=== PATIENT | male | born 1965 | race Caucasian/White ===

== ENCOUNTER 2016-09-01 20:05 | Emergency (ER) | payer MEDICARE ==
[~2016-09-01] VITALS: Ht 180.3 cm; Wt 104.5 kg
[~2016-09-01 20:05] MED LIST: ABILIFY15 MG PO; AMBIEN10 MG OR; BUSPIRONE10 MG PO; CLONAZEPAM0.5 MG PO; COLACE100 MG OR; COLACE50 MG PO; CORTISPORIN OTI10 ML AD; CYMBALTA30 MG PO; DILAUDID2 MG OR; FENTANYL25 MCG/HR TD; FLEXERIL OR; FLEXERIL PO; GABAPENTIN300 MG PO; HYDROCHLOROT12.5 MG PO; LIDODERM5 % EX; LISINOPRIL10 MG OR; LORTAB 10-325 M1 TAB PO; LOSARTAN/HCT1 TA1 PO; LYRICA50 MG PO; LYRICA75 MG OR; LYRICA75 MG PO; MELOXICAM15 MG PO; MIRALAX3350 N1 OR; MIRALAX3350 N1 PO; NORCO1 TA1 PO; NUCYNTA50 MG PO; OXAPROZIN600 MG OR; PERCOCET1 TA4 PO; PERCOCET1 TA5 OR; QUETIAPINE FUM300 MG PO; SOMA350 MG PO; TIZANIDINE2 MG PO; ULTRAM50 M1 PO; [UNRECOGNIZED DRUG - OTHER] OR
[2016-09-01] MEDS ORDERED: BACLOFEN10 MG PO (20:36)
[2016-09-01 22:45] VITALS: BP 148/88
[2016-09-01] MEDS ORDERED: PERCOCET 5/325M1 TAB PO (23:07)
== END 2016-09-01 23:40 | disposition home or self-care (01) ==
LOC: ED 20:05
DX: S00.83XA Contusion of other part of head, initial encounter (principal); R07.89 Other chest pain; I10 Essential (primary) hypertension; F17.210 Nicotine dependence, cigarettes, uncomplicated; W01.0XXA Fall on same level from slipping, tripping and stumbling without subsequent striking against object, initial encounter; Y92.511 Restaurant or cafe as the place of occurrence of the external cause

== ENCOUNTER 2018-06-09 01:10 | Emergency (ER) | payer MEDICARE ==
[~2018-06-09] VITALS: Ht 180.3 cm; Wt 91.0 kg
[~2018-06-09 01:10] MED LIST changes: +BACLOFEN10 MG PO; +PERCOCET 5/325M1 TAB PO
[2018-06-09 01:42] LABS: HEMATOCRIT 44.4 % (39.0-50.0); HEMOGLOBIN 16.1 g/dl (14.0-18.0); IMMATURE GRANULOCYTES 0.3 % (0.0-5.0); MEAN CELL VOLUME 86.4 fL CALC (80.0-100.0); MEAN CORPUSCULAR HGB 31.3 pG CALC (26.0-32.0); MEAN CORPUSCULAR HGB CONC 36.3 g/L CALC (32.0-36.0); NEUT# 3.86 thou/uL (1.82-7.42); RED BLOOD COUNT 5.14 mill/uL (4.70-6.10); RED CELL DISTRI WIDTH 11.7 % (11.5-15.5)
[2018-06-09 01:53] LABS: ALBUMIN 4.9 g/dL (3.2-5.0); ALKALINE PHOSPHATASE 63 u/l (38-126); ANION GAP 21 (6-22 (CALC)); BILIRUBIN, TOTAL 0.4 mg/dL (0.0-1.4); BUN 9 mg/dL (9-20); BUN/CREATININE RATIO 14 (12-20 (CALC)); CARBON DIOXIDE 22 mmol/l (22-30); CHLORIDE 105 mmol/l (95-108); CREATININE 0.6 mg/dL (0.7-1.3); GFR > 60 ML/MIN (>=60 (CALC)); GFR FOR AFR.AMER. > 60 ML/MIN (>=60 (CALC)); POTASSIUM 3.6 mmol/l (3.5-5.1); SGOT/AST 73 u/l (17-59); SODIUM 144 mmol/l (137-146); TOTAL PROTEIN 8.4 g/dL (6.3-8.2)
[2018-06-09 02:05] LABS: MYOGLOBIN 39 ng/mL (0 - 121)
[2018-06-09] MEDS ORDERED: TORADOL PO (02:29)
[2018-06-09 02:30] VITALS: BP 109/60
== END 2018-06-09 02:30 | disposition home or self-care (01) ==
LOC: ED 01:10
PROVIDERS: Family Medicine
DX: R09.1 Pleurisy (principal); M19.90 Unspecified osteoarthritis, unspecified site; Z87.891 Personal history of nicotine dependence

== ENCOUNTER 2022-03-26 08:00 | Day surgery (SDC) | payer MEDICARE ==
[~2022-03-26] VITALS: Ht 180.3 cm; Wt 104.2 kg
[~2022-03-26 08:00] MED LIST changes: +ASPIRIN 81 LOW81 MG PO; +ATORVASTATIN CA80 MG PO; +BACLOFEN20 MG PO; +CLOPIDOGREL75 MG PO; +FENOFIBRATE145 MG PO; +FISH OIL1 CAP PO; +HYZAAR1 TA1 PO; +ISOSORB MONO20 MG PO; +LYRICA150 MG PO; +TOPROL XL25 M1 PO; +TORADOL PO
[2022-03-26 10:46] VITALS: BP 141/73
== END 2022-03-26 10:16 | disposition home or self-care (01) ==
LOC: ENDO 08:00 → ORM 09:05 → ENDO 09:30 → ORM 10:00 → ENDO 10:16
PROVIDERS: ATTEND Surgery
PROC: 0DB78ZX Excision of Stomach, Pylorus, Via Natural or Artificial Opening Endoscopic, Diagnostic (ICD-10-PCS; principal; 2022-03-26)
PROC: 0DBL8ZX Excision of Transverse Colon, Via Natural or Artificial Opening Endoscopic, Diagnostic (ICD-10-PCS; 2022-03-26)
DX: K29.70 Gastritis, unspecified, without bleeding (principal); K63.5 Polyp of colon; K57.30 Diverticulosis of large intestine without perforation or abscess without bleeding; K64.8 Other hemorrhoids; I10 Essential (primary) hypertension; F17.200 Nicotine dependence, unspecified, uncomplicated; Z87.11 Personal history of peptic ulcer disease; Z90.49 Acquired absence of other specified parts of digestive tract

== ENCOUNTER 2022-03-31 13:19 | Emergency (ER) | payer MEDICARE ==
[~2022-03-31] VITALS: Ht 180.3 cm; Wt 100.0 kg
[2022-03-31] VITALS (10 sets, daily range): BP systolic 89–115; BP diastolic 44–76
== END 2022-03-31 15:50 | disposition home or self-care (01) ==
LOC: ED 13:19
DX: G62.9 Polyneuropathy, unspecified (principal); M25.522 Pain in left elbow; F17.210 Nicotine dependence, cigarettes, uncomplicated

== ENCOUNTER 2022-04-26 18:33 | Emergency (ER) | payer MEDICARE ==
[2022-04-26] VITALS (7 sets, daily range): BP systolic 110–134; BP diastolic 62–116
[~2022-04-26] VITALS: Ht 180.3 cm; Wt 105.0 kg
== END 2022-04-26 20:10 | disposition home or self-care (01) ==
LOC: ED 18:33
PROC: 0HQFXZZ Repair Right Hand Skin, External Approach (ICD-10-PCS; principal; 2022-04-26)
DX: S61.216A Laceration without foreign body of right little finger without damage to nail, initial encounter (principal); F17.210 Nicotine dependence, cigarettes, uncomplicated; W31.82XA Contact with other commercial machinery, initial encounter; Y93.89 Activity, other specified; Y92.89 Other specified places as the place of occurrence of the external cause; Y99.0 Civilian activity done for income or pay